=== PATIENT | male | born 1940 | race Caucasian/White ===

== ENCOUNTER 2018-09-30 09:43 | Outpatient (CLI) | payer MEDICARE, OTHER ==
--- NOTE | 2018-09-30 17:05 | RAD ---
RIGHT HIP 09/30/18 Vascular calcifications and some sort of femoral artery stent were indicated. IMPRESSION: No acute bony findings. POS: HOME
== END 2018-09-30 09:44 | disposition home or self-care (01) ==
LOC: BURRAD 09:43
PROVIDERS: ATTEND Family Medicine
DX: M25.551 Pain in right hip (principal); F45.42 Pain disorder with related psychological factors

== ENCOUNTER 2018-12-15 08:00 | Emergency (ER) | payer MEDICARE, OTHER ==
[2018-12-15] MEDS ORDERED: Norepinephrine 4 MG/4 ML VIAL ONE (11:04)
[2018-12-16 10:18] LABS: #Basophils 0.1 thou/uL (0.0-0.2); #Lymphocytes 2.4 thou/uL (1.20-3.40); #Monocytes 0.8 thou/uL (0.11-0.59); #Neutrophils 8.6 thou/uL (1.40-6.50); %Basophils 0.5 % (0.0-1.0); %Eosinophils 0.3 % (0.0-10.0); %Monocytes 6.7 % (0.0-10.0); %Neutrophils 72.4 % (42.0-75.0); Mean Corpuscular HGB CONC 32.3 g/dL (32.0-36.0); Mean Corpuscular Hemoglobin 31.6 pg (27.0-31.0); Mean Corpuscular Volume 97.7 fL (78.0-98.0); Mean Platelet Volume 6.7 fL (7.4-10.4); Platelet Count 150 thou/uL (130-400); Red Blood Cell (RBC) Count 2.54 mill/uL (4.70-6.10); White Blood Cell (WBC) Count 11.8 thou/uL (4.8-10.8)
[2018-12-16 10:29] LABS: ALT (SGPT) 17 U/L (8-55); AST (SGOT) 19 U/L (5-34); Albumin 2.6 g/dL (3.4-4.8); Alkaline Phosphatase 72 U/L (40-150); Anion Gap 19 mmol/L (10-20); BUN (Urea Nitrogen) 28 mg/dL (8.4-25.7); Bilirubin, Total 0.3 mg/dL (0.2-1.2); Calc. Creatinine Clearance 0 mL/min (70-130); Carbon Dioxide 14 mmol/L (23-31); Chloride 113 mmol/L (98-107); Estimated GFR-MDRD 46; Glucose 224 mg/dL (83-110); INR-International Normal Ratio 1.8; PTT 53.2 SEC (22.9-36.1); Potassium 3.9 mmol/L (3.5-5.1); Protein, Total 4.6 g/dL (5.8-8.1); Prothrombin Time 20.9 SEC (12.0-14.7); Sodium 142 mmol/L (136-145)
[2018-12-16 10:32] LABS: CKMB 1.3 ng/mL (0-6.6); Troponin I 0.025 ng/mL (< 0.028)
[2018-12-16 10:34] LABS: Base Excess-Venous -12.6 mmol/L (-2.0 to 3.0); Bicarbonate (HCO3v) 16.1 mmol/L (22.0-28.0); CO2 Tension (PvCO2) 51.6 mmHg (40.0-50.0); pH (Venous) 7.104 (7.320-7.430)
[2018-12-16 10:35] LABS: Calcium, Ionized 1.71 mmol/L (See Comments:); Chloride 111 mmol/L (98-107); Hemoglobin - Calc 7.4 g/dL (14.0-18.0); Potassium 3.7 mmol/L (3.5-5.1); Sodium 143 mmol/L (138-145); T. Carbon Dioxide 17.7 mmol/L (22.0-28.0); vO2 Saturation-calc 96.1 % (60.0-85.0)
--- NOTE | 2018-12-16 17:02 | RAD ---
PORTABLE CHEST 12/15/18 An AP portable film at 0807 shows mild cardiomegaly but no congestive failure or pleural effusion. An endotracheal tube is in place with its tip in appropriate position. EKG leads and pads are spaced ov er the chest. The right lung is clear. There is little increase to the left basilar lung markings whi ch may or may not be significant. IMPRESSION: 1. Adequate placement of endotracheal tube. 2. Question of left basilar infiltrate versus scarring. POS: HOME
== END 2018-12-15 09:00 | disposition short-term general hospital (02) ==
LOC: BURERS 08:00
DX: I46.9 Cardiac arrest, cause unspecified (principal)
CPT/HCPCS: 36415; 51702; 71045; 82330; 82553; 82803; 84484; 85610; 85730; 92950; 96374; 96375